=== PATIENT | male | born 1990 | race Caucasian/White ===

== ENCOUNTER 2024-11-08 06:56 | Emergency (ER) | payer BC, SELFPAY ==
[2024-11-08 07:03] VITALS: BP 114/80
--- NOTE | 2024-11-08 07:19 | ED.GENMED ---
History of Present Illness
General
Chief Complaint: Abdominal Symptoms
Source: patient
Exam Limitations: none
Time Seen by Provider: 11/08/24 07:08
History of Present Illness
History of Present Illness:
33yoM with no significant past medical history presenting for evaluation of flu-like symptoms x 6 days. Patient reports sore throat, cough, vomiting, diarrhea, and fevers. Temperatures have been ranging from 101-102. He also has developed right
ear pain within the last 24 hours. He has been taking Sudafed at home for his symptoms. Home COVID and flu tests were negative yesterday. Symptoms feel similar to when he had COVID in 2019. He denies any abdominal pain, urinary symptoms, rash,
headache. No known sick contacts or recent travel.
Phy Exam
General Physical Exam
General Presentation: well appearing and no apparent distress
General Skin: warm and dry
General Habitus: normal
General Mental: alert
ENT Exam
ENT Exam: pharynx normal, neck supple, normocephalic and TM's abnormal (R TM erythematous and bulging)
Additional ENT: Neck supple without meningismus.
Cardiovascular Exam
Cardiovascular Exam: regular rate/rhythm
Pulmonary Exam
Pulmonary Exam: lungs clear, no respiratory distress, no rales, no crackles, no rhonchi and no wheezing
Gastrointestinal Exam
Gastrointestinal Exam: non tender, soft and non distended
Neurological Exam
Neurological Exam: alert
[place] Coma Scale
Eye Opening: Spontaneous
Verbal Response: Oriented
Motor Response: Obeys Commands
GCS Total Score: 15
Skin Exam
Skin Exam: normal color and warm/dry
Psychiatric Exam
Psychiatric Exam: normal mood/affect
Sepsis
Sepsis Screening
Sepsis Assessment: Sepsis Ruled Out
Sepsis Screen
Sepsis Screen: Sepsis Ruled Out
Date: 11/08/24
Time: 08:47
Course
Orders/Labs/Results
Orders:
Orders
11/08/24 07:18
0.9% Sodium Chloride 1000 ml [Nss] 1,000 ml IV BOLUS
Ondansetron Injectable [Zofran] 4 mg IV NOW STA
CR Chest - 2 Views Urgent
Comment:
Reason For Exam: cough, fever
11/08/24 07:23
COVID-19 Antigen Urgent
Source: Nasal Swab
Complete Blood Count/With Diff Urgent
Comprehensive Metabolic Panel Urgent
Influenza A+B Rapid Molecular Urgent
CARMINA Source: Nasal Swab
Specimen Description:
11/08/24 07:28
Rapid Strep Group A Urgent
CARMINA Source: Throat/Pharynx
Specimen Description:
Date Specimen was Collected: 11/08/24
Time Specimen was Collected: 07:26
Abnormal Lab Results
11/08/24
07:23
MCH 31.8 H pg
(27.0-31.0)
Absolute Monos (auto) 0.7 H 10^3/uL
(0.1-0.6)
Glucose 108 H mg/dl
(70-99)
11/08/24 07:23
11/08/24 07:23
Vital Signs
Initial and Last Documented VS:
Initial Vital Signs
Temp Pulse Resp BP Pulse Ox
98.6 F 95 18 114/80 98
11/08/24 07:03 11/08/24 07:03 11/08/24 07:03 11/08/24 07:03 11/08/24 07:03
Last Documented Vital Signs
Temp Pulse Resp BP Pulse Ox
98.6 F 84 16 118/74 99
11/08/24 07:03 11/08/24 08:44 11/08/24 08:44 11/08/24 08:44 11/08/24 08:44
MDM/Problems Addressed
Differential Diagnosis Includes:
33yoM her with flu-like symptoms x 6 days. C/o sore throat, cough, vomiting, fevers of 101-102. Now with R ear pain. Temperature 98.6 here and he has not taken any antipyretics today. Remainder of vitals normal. He is well appearing in no distress.
R tympanic membrane is erythematous. Remainder of exam is reassuring. Differential diagnosis includes but is not limited to: viral illness, otitis media, pneumonia, dehydration
Initial ED plan: Check CBC, CMP, COVID/flu swab, rapid strep, and CXR. IV Zofran and fluid bolus for symptoms.
*Pulse Oximetry
SaO2: 98
Oxygen Mode of Delivery: Room air
Patient hypoxic: no (98%)
*Critical Care Note
Total Time (30-74mins, 75-104mins- exclusive of procedures): Not Applicable
Update Note
Update Note:
Labs unremarkable including normal white count, electrolytes, renal function. COVID, flu, and strep testing all negative. Chest x-ray appears clear without infiltrates per my interpretation. No indication for hospitalization. He was started on a
course of Augmentin to cover for otitis media. Prescription also provided for Zofran and supportive care discussed. Advised follow-up with PCP and ED return precautions reviewed. Patient discharged in stable condition.
ED Attending Note
-
Portions of this chart may have been created with voice recognition software.� Occasional wrong word or��sound alike� substitutions may have occurred due to the inherent limitations of voice recognition software.
Discharge Plan
Departure
Patient Disposition: Home (Routine Discharge)
Date of Disposition: 11/08/24
Time of Disposition: 08:26
Patient with high blood pressure during this ER visit?: No
Discharge Problem:
Acute otitis media, Nausea and vomiting
Instructions: Ear infection - ED discharge instructions
Prescriptions:
New
amoxicillin-pot clavulanate 875-125 mg tablet
1 tab PO BID Qty: 14 0RF
ondansetron 4 mg tablet,disintegrating
4 mg PO Q6H PRN (Reason: nausea and vomiting) Qty: 20 0RF
Activity Restrictions/Additional Instructions:
Take antibiotics as prescribed for your ear infection. Take Zofran as needed for nausea.
Please follow-up with your family doctor in 2-3 days. Return to the ER with any new or worsening symptoms.
Interventions
Interventions:
*Risk Screen - Suicide Last Done: 11/08/24 07:03
*General Assessment Last Done: 11/08/24 07:34
*Neglect/Abuse Screening Last Done: 11/08/24 07:07
*ED- Fall Risk Assessment Last Done: 11/08/24 07:34
*ED COVID-19 Vaccine History Last Done: 11/08/24 07:03
*Nursing Disposition Last Done: 11/08/24 08:44
AY-Ceggvh-Gmhgwkrghj Assessment Last Done: 11/08/24 07:34
ED- Pulmonary Assessment Last Done: 11/08/24 07:34
Discharge Date and Time
Print Language: HUNGARIAN
[2024-11-08] MEDS: ZOFRAN 4 MG IV (07:29)
[2024-11-08] MEDS: NSS 1000 IV (07:29)
[2024-11-08 07:48] LABS: Hematocrit 45.3 % (39.0-52.0); Hemoglobin 15.7 g/dL (13.0-18.0); Mean Corp Hgb Conc. 34.7 g/dL (33.0-37.0); Mean Corpuscular Volume 91.7 fL (80.0-94.0); Nucleated Red Blood Cells % 0 % (-); Platelet Count 206 10^3/uL (130-400); Red Cell Dist. Width 12.1 % (11.5-14.5)
[2024-11-08 07:58] LABS: COVID-19 Antigen Negative (Negative)
[2024-11-08 08:04] LABS: ALT (SGPT) 17 U/L (0-50); AST (SGOT) 23 U/L (17-59); Albumin 4.7 g/dl (3.5-5.0); Alkaline Phosphatase 56 U/L (38-126); Blood Urea Nitrogen 17 mg/dl (9-20); Calcium 9.6 mg/dl (8.4-10.2); Carbon Dioxide 28 mmol/L (22-30); Chloride 104 mmol/L (98-107); Glucose 108 mg/dl (70-99); Potassium 4.3 mmol/L (3.5-5.1); Sodium 140 mmol/L (135-145); Total Protein 7.7 g/dl (6.3-8.2); eGFR > 60.00
[2024-11-08 08:44] VITALS: BP 118/74
== END 2024-11-08 08:58 | disposition home or self-care (01) ==
LOC: EMR 06:56
PROVIDERS: Physician Assistant; EMERGENCY PHYSICIAN Emergency Medicine; FAMILY PHYSICIAN Nurse Practitioner Adult Health
DX: H66.91 Otitis media, unspecified, right ear (principal); R11.2 Nausea with vomiting, unspecified; Z86.16 Personal history of COVID-19
CPT/HCPCS: 99284; 96374; 96361; 71046; 80053; 85025; 87070; 87502; 87811; 87880

== ENCOUNTER 2024-11-09 20:14 | Emergency (ER) | payer BC, SELFPAY ==
[2024-11-09 20:19] VITALS: BP 118/76
[2024-11-09 21:50] VITALS: BMI 20.2
[2024-11-09] MEDS: NSS 1000 IV (21:51)
[2024-11-09] MEDS: ZOFRAN 4 MG IV (21:52)
[2024-11-09 22:04] LABS: Hematocrit 43.8 % (39.0-52.0); Hemoglobin 15.1 g/dL (13.0-18.0); Mean Corp Hgb Conc. 34.5 g/dL (33.0-37.0); Mean Corpuscular Volume 89.8 fL (80.0-94.0); Nucleated Red Blood Cells % 0 % (-); Platelet Count 209 10^3/uL (130-400); Red Cell Dist. Width 12.0 % (11.5-14.5)
[2024-11-09 22:17] LABS: ALT (SGPT) 15 U/L (0-50); AST (SGOT) 19 U/L (17-59); Albumin 4.6 g/dl (3.5-5.0); Alkaline Phosphatase 55 U/L (38-126); Blood Urea Nitrogen 18 mg/dl (9-20); Calcium 9.5 mg/dl (8.4-10.2); Carbon Dioxide 29 mmol/L (22-30); Chloride 102 mmol/L (98-107); Estimated Creatinine Clearance 115 ml/min; Glucose 100 mg/dl (70-99); Lipase 100 U/L (23-300); Potassium 4.3 mmol/L (3.5-5.1); Sodium 137 mmol/L (135-145); Total Protein 7.6 g/dl (6.3-8.2); eGFR > 60.00
[2024-11-09 22:28] VITALS: BP 115/67
[2024-11-09 23:09] VITALS: BP 117/69
[2024-11-10] MEDS: COMPAZINE 10 MG IV (00:23)
--- NOTE | 2024-11-10 01:28 | ED.GENMED ---
History of Present Illness
General
Chief Complaint: Abdominal Symptoms
Source: patient
Exam Limitations: none
Time Seen by Provider: 11/09/24 21:21
Nursing documentation reviewed up to this point in time: agreed with
History of Present Illness
History of Present Illness:
Patient returns to ED wt report of continued vomiting He was seen in ED yesterday for vomiting and right ear pain,. Placed on augmenting for OM, given zofran for vomiting. Patient states he felt well after discharge from here but today vomiting
returned. States zofran is not helping. Denies fever/chills. Brought to ED by spouse for eval.
Past History
Past History
ED Past Medical History: None
Review of Systems
Review of Systems
Allergies reviewed?: Yes
All Other Systems: ROS reviewed and negative except as documented in HPI and ROS
Constitutional: Reports no symptoms
EENT: Reports other (right ear drainage)
Respiratory: Reports no symptoms
Cardiac: Reports no symptoms
ABD/GI: Reports nausea and vomiting
: Reports no symptoms
Musculoskeletal: Reports no symptoms
Skin: Reports no symptoms
Neurological: Reports no symptoms
Psychiatric: Reports no symptoms
Phy Exam
General Physical Exam
General Presentation: mild distress
General age: appears stated age and appears older than age
General Skin: warm and dry
General Habitus: normal
General Mental: alert
ENT Exam
ENT Exam: EOMI, neck supple, normocephalic and other (Small perforation right TM. Small amt of yellow drainage in canal. NO redness or swelling of canal.)
Cardiovascular Exam
Cardiovascular Exam: regular rate/rhythm and no edema
Pulmonary Exam
Pulmonary Exam: lungs clear and no respiratory distress
Gastrointestinal Exam
Gastrointestinal Exam: normal bowel sounds, soft, no organomegaly, no pulsatile mass and no cva tenderness
Palpation: generalized: Mild tenderness
Neurological Exam
Neurological Exam: alert, oriented x3, CN II-XII intact and no motor deficits
Musculoskeletal Exam
Musculoskeletal Exam: full ROM and neuro vasc intact
Skin Exam
Skin Exam: normal color, warm/dry and no rash
Psychiatric Exam
Psychiatric Exam: normal mood/affect
Course
Orders/Labs/Results
Orders:
Orders
11/09/24 21:41
Ondansetron Injectable [Zofran] 4 mg IV NOW STA
11/09/24 21:42
CT Abd/pelvis W Iv Cont Urgent
Comment:
Reason For Exam: diffuse pain, vomiting
0.9% Sodium Chloride 1000 ml [Nss] 1,000 ml IV BOLUS
11/09/24 21:51
Complete Blood Count/With Diff Urgent
Comprehensive Metabolic Panel Urgent
Lipase Urgent
11/10/24 00:12
Prochlorperazine [Compazine] 10 mg IV NOW STA
Abnormal Lab Results
11/09/24
21:51
Glucose 100 H mg/dl
(70-99)
11/09/24 21:51
11/09/24 21:51
Vital Signs
Initial and Last Documented VS:
Initial Vital Signs
Temp Pulse Resp BP Pulse Ox
98.7 F 67 20 118/76 100
11/09/24 20:19 11/09/24 20:19 11/09/24 20:19 11/09/24 20:19 11/09/24 20:19
Last Documented Vital Signs
Temp Pulse Resp BP Pulse Ox
98.5 F 75 18 117/69 98
11/09/24 23:09 11/09/24 23:09 11/09/24 22:28 11/09/24 23:09 11/10/24 01:34
*Radiology
Radiology exam reviewed: radiology read reviewed
*Pulse Oximetry
SaO2: 98
Oxygen Mode of Delivery: Room air
Patient hypoxic: no
*Critical Care Note
Total Time (30-74mins, 75-104mins- exclusive of procedures): Not Applicable
Update Note
Update Note:
Patient to ED wtih report of nausea and vomiting not responding to zofran. Given IVF and zofran in ED iwth resolution of syptoms. Tolerating po fluids in ED. CT reviewed - possible enteritis, no other concerning findings. Discussed results of
labs, CT with patiebnt and spouse. He feels he can be discharged home WIll continue clear liquids x 24 hours and then advance as tolerated. Given rx for oral compazine. Givne instructions on s/s to return to ED and he is agreeable to plan
ED Attending Note
-
Portions of this chart may have been created with voice recognition software.� Occasional wrong word or��sound alike� substitutions may have occurred due to the inherent limitations of voice recognition software.
Discharge Plan
Departure
Patient Disposition: Home (Routine Discharge)
Date of Disposition: 11/10/24
Time of Disposition: 00:12
Patient with high blood pressure during this ER visit?: No
Condition: Good
Covid-19: Not Applicable
Discharge Problem:
Enteritis
Instructions: Clear Liquid Diet, Dehydration, Adult (DC), Nausea and Vomiting, Adult (DC)
Prescriptions:
New
prochlorperazine maleate [Compazine] 10 mg tablet
10 mg PO TID PRN (Reason: nausea and vomiting) Qty: 12 0RF
No Action
amoxicillin-pot clavulanate 875-125 mg tablet
1 tab PO BID Qty: 14 0RF
ondansetron 4 mg tablet,disintegrating
4 mg PO Q6H PRN (Reason: nausea and vomiting) Qty: 20 0RF
Referrals:
Asia Benavides NP [Family Provider, Family Practice] - Follow up in 2-3 days
Interventions
Interventions:
*Risk Screen - Suicide Last Done: 11/09/24 20:19
*General Assessment Last Done: 11/09/24 20:19
*Neglect/Abuse Screening Last Done: 11/09/24 20:19
*ED- Fall Risk Assessment Last Done: 11/09/24 20:19
*ED COVID-19 Vaccine History Last Done: 11/09/24 20:19
*Nursing Disposition Last Done: 11/10/24 00:30
ZH-Dsflne-Lwkmkxthdz Assessment Last Done: 11/09/24 21:48
Discharge Date and Time
Discharge Date/Time: 11/10/24 00:30
Print Language: NAMIBIAN
== END 2024-11-10 00:30 | disposition home or self-care (01) ==
LOC: EMR 20:14
PROVIDERS: Nurse Practitioner; EMERGENCY PHYSICIAN Emergency Medicine; FAMILY PHYSICIAN Nurse Practitioner Adult Health
DX: K52.9 Noninfective gastroenteritis and colitis, unspecified (principal)
CPT/HCPCS: 99284; 96374; 96375; 96361; 74177; 80053; 83690; 85025; Q9967